=== PATIENT | male | born 1985 | race American Indian/Alaskan Native ===

== ENCOUNTER 2021-06-09 13:30 | Emergency (ER) | payer SELFPAY ==
[2021-06-09] MEDS ORDERED: SODIUM CHLORIDE 0.9% 1000 ML 1,000 ML IV ONE (14:01)
[2021-06-09] MEDS ORDERED: MORPHINE 4 MG/1 ML INJ IV ONE (14:02)
[2021-06-09] MEDS ORDERED: METOCLOPRAMIDE 10 MG/2 ML INJ IV ONE (14:02)
--- NOTE | 2021-06-09 14:02 | Emergency Department Report ---
ED Abdominal Pain HPI - General Chief Complaint: Abdominal Pain Stated Complaint: ABD PAIN PAIN Time Seen by Provider: 06/09/21 13:48 Source: patient Mode of arrival: Wheelchair Limitations: No Limitations - History of Present Illness Initial Comments: 36-year-old male presents to the ER today with complaints of nausea and vomiting and abdominal pain. Patient states that his symptoms started this morning. Patient states that he thinks his symptoms is related to him having too much alcohol to drink last night on empty stomach. Patient reports having multiple shots of alcohol last night. Girlfriend reports that patient typically drinks every other day, and is typically liquor but she states that he has never had these symptoms after drinking before and she also thinks it could related to him not eating while drinking. Patient states that he has vomited multiple times since this morning. Emesis mainly bilious without coffee-ground emesis or hematemesis. He reports diffuse abdominal pain. He denies any diarrhea, UTI symptoms, fever, chills, chest pain or shortness of breath. He denies any history of illicit drug use. He denies any significant past medical history. MD Complaint: abdominal pain, other (nausea and vomiting) -: This morning Severity scale (0 -10): 10 - Related Data Previous Rx's Medication Instructions Recorded Last Taken Type Famotidine [Pepcid] 20 mg PO BID #30 tablet 06/09/21 Unknown Rx HYDROcodone/APAP 5-325 [[place] 1 each PO Q4HR PRN #10 tablet 06/09/21 Unknown Rx 5/325] Ondansetron [Zofran Odt] 4 mg PO Q8HR #15 tab.rapdis 06/09/21 Unknown Rx Pantoprazole [Protonix] 40 mg PO QHS #30 tablet 06/09/21 Unknown Rx Allergies Allergy/AdvReac Type Severity Reaction Status Date / Time No Known Allergies Allergy Unverified 06/09/21 13:31 ED Review of Systems ROS: Stated complaint: ABD PAIN PAIN Other details as noted in HPI Comment: All other systems reviewed and negative Respiratory: denies: cough, shortness of breath, SOB with exertion, SOB at rest, wheezing Cardiovascular: denies: chest pain, palpitations Gastrointestinal: abdominal pain, nausea, vomiting. denies: diarrhea, constipation, hematemesis, melena, hematochezia Genitourinary: denies: urgency, dysuria, frequency, hematuria, discharge, testicular pain, testicular mass Musculoskeletal: denies: back pain, joint swelling, arthralgia, myalgia Skin: denies: rash, lesions, change in color, change in hair/nails, pruritus Neurological: denies: headache, weakness, numbness, paresthesias, confusion, abnormal gait, vertigo Psychiatric: denies: anxiety, depression, auditory hallucinations, visual hallucinations, homicidal thoughts, suicidal thoughts ED Past Medical Hx - Past Medical History Previous Medical History?: No - Surgical History Past Surgical History?: No - Medications Home Medications: Home Medications Medication Instructions Recorded Confirmed Last Taken Type Famotidine [Pepcid] 20 mg PO BID #30 tablet 06/09/21 Unknown Rx HYDROcodone/APAP 5-325 [[place] 1 each PO Q4HR PRN #10 tablet 06/09/21 Unknown Rx 5/325] Ondansetron [Zofran Odt] 4 mg PO Q8HR #15 tab.rapdis 06/09/21 Unknown Rx Pantoprazole [Protonix] 40 mg PO QHS #30 tablet 06/09/21 Unknown Rx ED Physical Exam - General Limitations: No Limitations General appearance: alert, in distress (Patient appears to be uncomfortable, he appears to be in pain and actively vomiting in triage) - Head Head exam: Present: atraumatic, normocephalic, normal inspection - ENT ENT exam: Present: normal exam, mucous membranes moist - Neck Neck exam: Present: normal inspection, full ROM. Absent: meningismus - Respiratory Respiratory exam: Present: normal lung sounds bilaterally. Absent: respiratory distress, wheezes, rales, rhonchi - Cardiovascular Cardiovascular Exam: Present: regular rate, normal rhythm, normal heart sounds - GI/Abdominal GI/Abdominal exam: Present: soft, tenderness (Moderate epigastric tenderness). Absent: distended, rebound, rigid - Neurological Exam Neurological exam: Present: alert, oriented X3, CN II-XII intact, normal gait - Psychiatric Psychiatric exam: Present: normal affect, normal mood - Skin Skin exam: Present: intact ED Course Vital Signs 06/09/21 06/09/21 13:37 17:41 Temperature 98.7 F Pulse Rate 84 80 Respiratory 20 14 Rate Blood Pressure 131/60 128/72 [Right] O2 Sat by Pulse 100 98 Oximetry ED Medical Decision Making - Lab Data Result diagrams: 06/09/21 14:09 06/09/21 14:09 - Medical Decision Making 36-year-old male presents to the ER today with complaints of nausea and vomiting and abdominal pain. Patient states that his symptoms started this morning. Patient states that he thinks his symptoms is related to him having too much alcohol to drink last night on empty stomach. Patient reports having multiple shots of alcohol last night. Girlfriend reports that patient typically drinks every other day, and is typically liquor but she states that he has never had these symptoms after drinking before and she also thinks it could related to him not eating while drinking. Patient states that he has vomited multiple times since this morning. Emesis mainly bilious without coffee-ground emesis or hem atemesis. He reports diffuse abdominal pain. He denies any diarrhea, UTI symptoms, fever, chills, chest pain or shortness of breath. He denies any history of illicit drug use. He denies any significant past medical history. 1542: Patient reports that he still having some discomfort in the epigastric area but overall feeling better after IV fluids, morphine and Reglan. Repeat abdominal exam shows mild gastric tenderness, but no guarding, rebound or abdominal rigidity. No abdominal distention. All labs reviewed--CBC shows cytosis with a white count of 13.9, CMP shows mild hypokalemia with a potassium of 3.1, CO2 is 16 likely secondary to dehydration/alcohol induced ketoacidosis, blood sugar is elevated at 155, repeat fingerstick was 104 but remaining CMP unremarkable including normal lipase. Urinalysis does not suggest a UTI. Patient symptoms likely related to alcohol and dehydration. At this time I do not suspect bowel perforation, appendicitis, cholecystitis, bowel obstruction, or any other emergent conditions warranting CT scans or additional testing or admission at this time. Discussed all results, suspected diagnosis and treatment plan with patient. He expressed unde rstanding of all instructions and agree with plan. Patient was stable at time of discharge. Critical care attestation.: If time is entered above; I have spent that time in minutes in the direct care of this critically ill patient, excluding procedure time. ED Disposition Clinical Impression: Alcoholic gastritis, Nausea and vomiting, Dehydration Disposition: 01 HOME / SELF CARE / HOMELESS Is pt being admited?: No Does the pt Need Aspirin: No Condition: Stable Instructions: Gastritis, Adult, [id number], Dehydration, Adult, [id number], Nausea and Vomiting, Adult Additional Instructions: I recommend that you take the Pepcid and the Protonix as prescribed to help the gastritis. Take the Zofran to help as needed for nausea and vomiting. Take the hydrocodone to help with any pain. Most importantly I do recommend that she avoid any alcohol for at least 1 to 2 weeks. I do recommend decreasing your intake of alcohol on a regular basis as this can cause recurrent similar symptoms or even worsening issues in the future. Follow-up with your primary care doctor and or GI specialist if your symptoms persist. Return to the ER if your symptoms changes in any way. Prescriptions: Pantoprazole [Protonix] 40 mg PO QHS #30 tablet HYDROcodone/APAP 5-325 [[place] 5/325] 1 each PO Q4HR PRN #10 tablet PRN Reason: Pain Famotidine [Pepcid] 20 mg PO BID #30 tablet Ondansetron [Zofran Odt] 4 mg PO Q8HR #15 tab.[email or web address] Referrals: PRIMARY CARE, [Primary Care Provider] - 3-5 Days [facility] [Provider Group] - 3-5 Days Forms: Work/School Release Form(ED) Time of Disposition: 15:54
[2021-06-09 14:29] LABS: Basophils # (Auto) 0.1 K/mm3 (0.0-0.1); Basophils % (Auto) 0.5 % (0.0-1.8); Hemoglobin 15.4 gm/dl (11.8-15.2); Lymphocytes # (Auto) 1.3 K/mm3 (1.2-5.4); Lymphocytes % (Auto) 9.1 % (13.4-35.0); Mean Corpuscular HGB Conc 32 % (32-34); Mean Corpuscular Volume 93 fl (84-94); Monocytes # (Auto) 0.7 K/mm3 (0.0-0.8); Monocytes % (Auto) 5.2 % (0.0-7.3); Platelet Count 287 K/mm3 (140-440); Red Blood Count 5.17 M/mm3 (3.65-5.03); Red Cell Distribution Width 13.1 % (13.2-15.2)
[2021-06-09 15:08] LABS: Alanine Aminotransferase 18 units/L (7-56); Albumin 4.8 g/dL (3.9-5); BUN/Creatinine Ratio 14; Bilirubin,Direct 0.2 mg/dL (0-0.2); Blood Urea Nitrogen 11 mg/dL (9-20); Calcium 9.1 mg/dL (8.4-10.2); Hemolysis Index 6
[2021-06-09] MEDS ORDERED: POTASSIUM CHLORIDE ER 20 MEQ TAB PO ONE (15:14)
[2021-06-09] MEDS ORDERED: LIDOCAINE VISCOUS 2% 15 ML ORAL LIQD PO ONE ×2 (15:36→16:01)
[2021-06-09] MEDS ORDERED: FAMOTIDINE 20 MG TAB PO ONE (15:36)
[2021-06-09] MEDS ORDERED: PROMETHAZINE 25 MG TAB PO ONE (16:03)
[2021-06-09] MEDS ORDERED: diphenhydrAMINE 25 MG CAP PO ONE (16:08)
[2021-06-09] MEDS ORDERED: ONDANSETRON 4 MG ODT TAB PO ONE (16:08)
[2021-06-09 17:42] VITALS: BP 128/72
== END 2021-06-09 18:22 | disposition home or self-care (01) ==
LOC: ED 13:30
DX: K29.20 Alcoholic gastritis without bleeding (principal); R11.2 Nausea with vomiting, unspecified; E86.0 Dehydration
CPT/HCPCS: 36415; 80048; 80076; 82962; 83690; 85025; 96361; 96374; 96375; 99284; J2270; J2765; J7030; J3490; Q0162